=== PATIENT | female | born 1990 | race Caucasian/White ===

== ENCOUNTER 2019-12-18 08:33 | Inpatient (IN) ==
[2019-12-18] MEDS ORDERED: LACTATED RINGER'S 1,000 ML IV PRN (11:48)
[2019-12-18] MEDS ORDERED: OXYTOCIN 30 UNITS/500 ML BAG IV PRN ×2 (11:48→15:00)
--- NOTE | 2019-12-18 12:00 | History & Physical Report ---
Date of Service December 18, 2019 Assessment & Plan (1) Postmaturity , 40-42 weeks gestation: (2) Normal labor: Admission and Anticipated Discharge Date Admission Date: December 18, 2019 Admit. Agrees to arom. declining epidural at present. fetus category one. Anticipate . History of Present Illness Chief Complaint: contractions Primary Care Provider: Jaimie Winston DO Patient is a 29yowf with iup at 40 2/7 weeks who presents with onset of contractions. Some streaks of blood in mucous. no lof. +fm. uncomplicated. MONICA at 27 weeks from Sarah. No issues labs--O+/ab- (09/16/19)/ri/rprnr/hepb-/hiv-/gc/ct-/gtt nl/gbs neg declined genetics covid neg 12/02, pending from 12/16. Allergies Allergy/AdvReac Type Severity Reaction Status Date / Time cefaclor [From [facility]] Allergy Verified 12/17/19 10:42 Home Medications Home Medications Medication Instructions Recorded Confirmed Type prenat.vits,tania,mhw-nvnw-ibmpo 1 tab PO DAILY 09/15/19 12/17/19 History Patient History Medical History Encounter for anatomic survey Hx of varicella Normal vaginal delivery Surgical History H/O oral surgery Family History Father Dyslipidemia Sister Ulcerative colitis Social History Smoking Status: Never smoker Hx Alcohol Use: No Hx Substance Use: No Preferred Language: Estonian Communication Ability: Effective Beliefs That Will Affect Care: None marital status: marital status details: Darien Gonzalez 30 Current Living Situation: Family Current Living Situation Comment: one son current occupational status: employed current occupation: bank president at [employer] Other Information That Helps Us Care for You: No Feels Safe at Home: Yes Safety Concerns: Feels Safe At This Time Review of Systems All systems reviewed & are unremarkable except as noted in HPI & below Physical Exam Constitutional: WD/WN, vitals as above Gastrointestinal (Abdomen): soft, gravid, nt Psychiatric: A+Ox3, euthymic affect Genitourinary: cx--5/100/-2 toco--q2-4min efm--140s with mod variability, accels present , no decels Results & Data ([facility]) Vital Signs (Past 12 Hours) Vital Signs Temp Pulse Resp BP 12/18/19 08:39 88 111/70 12/18/19 08:36 37.2 C 88 20 111/70 Code Status & VTE Plan VTE Prophylaxis Plan VTE Prophylaxis will be ordered: No Coding Level of Care Code None Diagnoses Postmaturity , 40-42 weeks gestation O48.0 Normal labor O80; Z37.9
[2019-12-18 12:08] LABS: Hematocrit (blood only) 33.9 % (37-47); Hemoglobin 11.4 g/dL (12.0-16.0); Mean Corpuscular Hemoglobin 30.7 pg (25-34); Mean Corpuscular Volume 91.4 fL (80-100); Mean Platelet Volume 10.4 fL (7.4-10.4); Platelet Count 246 K/uL (130-400); RDW Coefficient of Variation 12.9 % (11.5-14.5); RDW Standard Deviation 42.8 fL (36.4-46.3); Red Blood Count 3.71 M/uL (4.2-5.4); White Blood Count 14.82 K/uL (4.8-10.8)
[2019-12-18 12:21] LABS: Mean Corpuscular Hgb Conc 33.6 g/dL (32-36)
--- NOTE | 2019-12-18 13:47 | Labor Progress Brief Note ---
Date of Service December 18, 2019 Subjective [facility] Assessment & Plan (1) Normal labor: Admission and Anticipated Discharge Date Admission Date: December 18, 2019 arom for clear fluid. continue expectant management. anticipate . fetus category one Physical Exam Constitutional: WD/WN, vitals as above Psychiatric: A+Ox3, euthymic affect Genitourinary: cx--5-6/100/-2 toco--q2-4min efm--145 with mod variability, accels to 170s, no decels Results & Data ([facility]) Vital Signs (Past 12 Hours) Vital Signs Temp Pulse Resp BP 12/18/19 13:18 77 110/62 12/18/19 13:17 36.9 C 20 12/18/19 08:39 88 111/70 12/18/19 08:36 37.2 C 88 20 111/70 Coding Level of Care Code None Diagnoses Normal labor O80; Z37.9
[2019-12-18] MEDS ORDERED: OXYCODONE/ACETAMINOPHEN 5mg/325mg TAB PO PRN (14:28)
[2019-12-18] MEDS ORDERED: ACETAMINOPHEN 325 MG TAB PO PRN (14:28)
[2019-12-18] MEDS ORDERED: IBUPROFEN 600 MG TAB PO PRN (14:28)
--- NOTE | 2019-12-18 14:31 | Delivery Summary ---
Vaginal Delivery Summary Date of Service December 18, 2019 Vaginal Delivery Summary Pre-operative Diagnosis: at 40 weeks labor Post-operative Diagnosis: same Procedure: arom EBL: 300cc Anesthesia: none Procedure: The patient pushed for about 2-3 contractions to deliver a viable female in caterina position. The nose and mouth were bulb suctioned on the perineum and the rest of the was then delivered without difficulty through a body cord. The baby was vigorous. The nose and mouth were again bulb suctioned and the was placed in the maternal abdomen for drying and attention. Cord was clamped and cut at about 30 secs of life. Cord blood and segment obtained. Placenta delivered spontaneous, intact with a three vessel cord. Cervix/sulci/rectum/perineum intact. Hemostasis obtained with dilute pitocin and fundal massage. Apgars were 8/9. Mother and baby doing well at the end of the delivery. [facility] [place] Charge Vaginal Delivery Codes: 62945 global code for the antepartum, delivery, and post-
[2019-12-18] MEDS ORDERED: bisacodyL 10 MG SUPP PR PRN (14:34)
[2019-12-18] MEDS ORDERED: SUPERCREAM 0.870% 15 GM JAR EXT PRN (15:00)
[2019-12-18] MEDS ORDERED: DIPHTHERIA/TETANUS/PERTUSSIS 0.5 ML SYR/VIAL IM ONE (15:00)
[2019-12-18] MEDS ORDERED: HYDROCORTISONE ACETATE 25 MG SUPP PR PRN (15:00)
[2019-12-18] MEDS ORDERED: BENZOCAINE 20% AER SPR 82.5 GM CAN EXT PRN (15:00)
[2019-12-18] MEDS: DOCUSATE SODIUM 100 MG CAP PO SCH (21:27)
--- NOTE | 2019-12-19 05:16 | Obstetrical Progress Note ---
Date of Service <Andrew Lopez MD - Last Filed: 12/19/19 07:22> December 19, 2019 Assessment & Plan <Andrew Lopez MD - Last Filed: 12/19/19 07:22> (1) (spontaneous vaginal delivery): - Feels well today. Eating well, voiding well, ambulating well. - Pain well controlled with ibuprofen 600mg Q4H PRN. - Routine post- care -- OOB and ambulation as tolerated - stable for d/c today pending peds Subjective <Andrew Lopez MD - Last Filed: 12/19/19 07:22> Kristie is a 29 y/o female who is now PPD #1 following at 40-2/7 weeks. Reports feeling well overall this morning. Reports some abdominal cramping that is well managed on analgesics. Voiding without difficulty. Tolerating meals overnight and able to ambulate some. Has been passing gas but not yet bowel movements. Some persistent lochia with some improvement this morning. Breast feeding and using breast pump. Review of Systems Denies fever, chills, sweats Denies shortness of breath, difficulty breathing, chest pain, palpitations, chest pressure. Denies breast pain. Denies dysuria. Denies headache or changes in vision. Physical Exam <Andrew Lopez MD - Last Filed: 12/19/19 07:22> General: Alert, oriented. No acute distress. Cardiac: Regular rate and rhythm, no murmurs/rubs/gallops. Respiratory: Clear to auscultation bilaterally a/p, no wheezes/rales/rhonchi. No increased work of breathing. Symmetrical chest rise. No respiratory distress. Abdomen: Soft, nontender, nondistended. Bowel sounds present. Uterus: Uterine fundus firm, palpable 1 cm below umbilicus. Lower Extremities: No lower extremity edema or swelling. No deep calf pain. Joaquín's negative bilaterally. Results & Data <Andrew Lopez MD - Last Filed: 12/19/19 07:22> Vital Signs (Past 12 Hours) Vital Signs Temp Pulse Resp BP Pulse Ox 12/19/19 03:40 36.6 C 66 16 98/63 L 97 12/18/19 23:16 36.8 C 71 18 119/77 97 12/18/19 19:32 37.2 C 83 18 113/67 98 <Beverly Ramesh MD, FACOG - Last Filed: 12/19/19 07:27> Co-Signing Physician Notes Resident Physician Supervision Note: I interviewed and examined the patient. Discussed with Dr. Lopez and agree with findings and plan as documented in the note. Any exceptions or clarifications are listed here: Doing well. Desires d/c later today. Instructions given. Documented By: Beverly Ramesh MD, FACOG Resident Activity Tracking <Andrew Lopez MD - Last Filed: 12/19/19 07:22> Resident Involvement: Resident Care Provided Care Provided: Adult Hospital Medicine and OB Delivery
[2019-12-19 06:38] LABS: Hematocrit (blood only) 30.7 % (37-47); Hemoglobin 10.1 g/dL (12.0-16.0); Mean Corpuscular Hemoglobin 30.3 pg (25-34); Mean Corpuscular Hgb Conc 32.9 g/dL (32-36); Mean Corpuscular Volume 92.2 fL (80-100); Mean Platelet Volume 10.5 fL (7.4-10.4); Platelet Count 241 K/uL (130-400); RDW Coefficient of Variation 13.1 % (11.5-14.5); RDW Standard Deviation 43.9 fL (36.4-46.3); Red Blood Count 3.33 M/uL (4.2-5.4); White Blood Count 16.17 K/uL (4.8-10.8)
[2019-12-19] MEDS ORDERED: PRENATAL VITAMIN 1 TAB PO SCH (08:00)
[2019-12-19] MEDS: DOCUSATE SODIUM 100 MG CAP PO SCH (08:37)
[2019-12-19] MEDS ORDERED: NON-FORMULARY MEDICATION (Prenat.Vits,Cal,Min-Iron-Folic 1 TAB) PO SCH (09:00)
[2019-12-19 09:37] VITALS: O2SAT 98
[2019-12-19 14:57] VITALS: BP 108/67; PULSE 82; TEMP 97.9
[2019-12-19] MEDS ORDERED: bisacodyL 5 MG TABEC PO SCH (20:00)
== END 2019-12-19 16:15 | disposition home or self-care (01) | DRG 807 ==
LOC: OPB 08:33 → 4S1 08:34 → 4S2 17:12